=== PATIENT | female | born 1960 | race Caucasian/White ===

== ENCOUNTER 2019-08-27 21:34 | Emergency (ER) | payer OTHER ==
[2019-08-27 21:42] VITALS: TEMP 98.8; BMI 26.6
--- NOTE | 2019-08-27 21:49 | PDOC ---
History of Present Illness - General Chief Complaint: Headache Stated Complaint: HEADACHE, HIGH BLOOD PRESSURE Time Seen by Provider: 08/27/19 21:48 - History of Present Illness Initial Comments: 08/27/19 23:42 59 y/o F no significant medical hx, presents to the ED with 3 days of headache. She was at a pharmacy today andwas told her blood pressure was elevated. She remembneres it as being high to the 150's systolic. She was given aspirin (81mg PO) and was sent to the ED,. She describes the pain as 5/10 tingling pain in the back of head and neck. The pain was somewhat alleviated after taking aspirin. She denies any exacerbating factors. She denies vision changes, previous hx of stroke, htn, fevers, chills, syncope, LOC, head trauma. Past History - Past Medical History Allergies/Adverse Reactions: Allergies Allergy/AdvReac Type Severity Reaction Status Date / Time No Known Allergies Allergy Verified 08/27/19 21:42 COPD: No - Psycho Social/Smoking Cessation Hx Smoking History: Never smoked Review of Systems - Review of Systems Constitutional: No: Chills, Fever HEENTM: No: Eye Pain, Blurred Vision Respiratory: No: Cough, Shortness of Breath Cardiac (ROS): No: Chest Pain, Palpitations ABD/GI: No: Nausea, Vomiting : No: Burning, Dysuria Musculoskeletal: Yes: Neck Pain. No: Gout Integumentary: No: Bruising, Change in Color Neurological: Yes: Headache, Numbness, Tingling Endocrine: No: Excessive Sweating, Flushing *Physical Exam - Vital Signs Last Vital Signs Temp Pulse Resp BP Pulse Ox 98.8 F 96 H 19 147/68 97 08/27/19 21:38 08/27/19 21:38 08/27/19 21:38 08/27/19 21:38 08/27/19 21:38 - Physical Exam 08/27/19 23:30 GENERAL: Awake, alert, and fully oriented, in no acute distress HEAD: No signs of trauma, normocephalic, atraumatic EYES: PERRLA, EOMI, sclera anicteric, conjunctiva clear ENT: Auricles normal inspection, hearing grossly normal, nares patent, oropharynx clear without exudates. Moist mucosa NECK: Normal ROM, spinal and paraspinal tenderness to palpation LUNGS: No distress, speaks full sentences, clear to auscultation bilaterally HEART: Regular rate and rhythm, normal S1 and S2, no murmurs, rubs or gallops, peripheral pulses normal and equal bilaterally. ABDOMEN: Soft, nontender, normoactive bowel sounds. No guarding, no rebound. No masses EXTREMITIES : Normal inspection, Normal range of motion, no edema. No clubbing or cyanosis NEUROLOGICAL: Cranial nerves II through XII grossly intact. Normal speech, normal gait, no focal sensorimotor deficits SKIN: Warm, Dry, normal turgor, no rashes or lesions noted 08/27/19 23:47 ED Treatment Course - LABORATORY CBC & Chemistry Diagram: 08/27/19 23:00 08/27/19 23:00 Medical Decision Making - Medical Decision Making 08/27/19 23:31 59 y/o F no significant medical hx, presents to the ED with 3 days of headache. Meds: Tylenol Imaging: Head CT, C-spine ekg:normal sinus rhythm,possible left atrial enlargemen incomplete right bundle branch 08/27/19 23:48 pt reassessed pain is improved. 08/28/19 02:28 Ct head and c-spine w/o contrast. No acute intracranial abnormality. No hemorrhage. No visible infarct or mass. Osseous structures are intact. CT cervical spine: The neck is held in flexion. The cervical vertebrae are normally aligned. No fracture or destructive bone lesion. Small C4-5 disc/osteophyte complex. Slight disc bulge at C5-6. Please note that CT is relatively insensitive for evaluation of degenerative disc, ligamentous, canal and cord disease. If this is suspected then MRI should be obtained. 08/28/19 02:29 Discharge - Discharge Information Problems reviewed: Yes Clinical Impression/Diagnosis: Headache Qualifiers: Headache type: unspecified Headache chronicity pattern: acute headache Intractability: not intractable Qualified Code(s): R51 - Headache Condition: Improved Disposition: HOME - Admission No - Follow up/Referral - Patient Discharge Instructions Patient Printed Discharge Instructions: DI for Headache, DI for High Blood Pressure Additional Instructions: You were seen in the ER for high blood pressure and headache You should follow up with your primary care provider in the next 2-3 days RETURN TO THE ER if your headache returns and pain is not relieved with tylenol or ibuprofen you develop, fevers, chills, neck stiffness. worsening of any of today's symptoms. - Post Discharge Activity
[2019-08-27] MEDS ORDERED: ACETAMINOPHEN 500 MG TABLET (FP) PO ONE (22:25)
[2019-08-27] MEDS ORDERED: ACETAMINOPHEN 1000 MG/100 ML VIAL (NON FORMULARY) IVPB ONE (22:33)
[2019-08-27] MEDS ORDERED: ACETAMINOPHEN INJECTION 100 ML IVPB ONE (23:13)
[2019-08-27 23:23] LABS: BASO % 0.8 % (0-2.0); EOS % 0.4 % (0-4.5); HEMATOCRIT 37.6 % (32.4-45.2); HEMOGLOBIN 12.5 GM/dL (10.7-15.3); LYMPH % 35.8 % (8-40); MCH 30.1 pg (25.7-33.7); MCHC 33.3 g/dl (32.0-36.0); MEAN CELL VOLUME 90.4 fl (80-96); MEAN PLT VOLUME 8.7 fl (7.5-11.1); MONO % 6.3 % (3.8-10.2); NEUT % 56.7 % (42.8-82.8); PLATELET COUNT 240 K/MM3 (134-434); RBC 4.16 M/mm3 (3.60-5.2); WHITE BLOOD COUNT 7.4 K/mm3 (4.0-10.0)
--- NOTE | 2019-08-27 23:51 | PDOC ---
Documentation entered by Tania Hollingsworth SCRIBE, acting as scribe for Yu Salgado MD. Yu Salgado MD: This documentation has been prepared by the layibshira, Tania Hollingsworth SCRIBE, under my direction and personally reviewed by me in its entirety. I confirm that the documentation accurately reflects all work, treatment, procedures, and medical decision making performed by me. Attending Attestation - Resident Resident Name: KarenYesica - ED Attending Attestation I have performed the following: I have examined & evaluated the patient, The case was reviewed & discussed with the resident, I agree w/resident's findings & plan, Exceptions are as noted - HPI HPI: 08/27/19 23:51 The patient is a 59-year-old female with no reported past medical history who presents to the emergency department with a headache and elevated blood pressure. The patient reports shes been having three days of ongoing posterior headache, that presented gradually. The patient reports the pain was 5-6/10 in severity. The patient reports following up at the pharmacy for the headache, where the patients blood pressure was noted to be elevated. The patient reports she took Ecotrin, with headache improvement. Denies nausea or vomiting. Denies recent falls or trauma. Denies vision changes. - Physicial Exam PE: 08/27/19 23:37 Patient examined after receiving Tylenol IV GENERAL: The patient is in no acute distress. ENT: Ears normal, nares patent, oropharynx clear without exudates. Moist mucous membranes. NECK: Normal range of motion, supple, no midline or paraspinal tenderness LUNGS: Breath sounds equal, clear to auscultation bilaterally. No wheezes, and no crackles. HEART:Regular rate and rhythm, normal S1 and S2 without murmur, rub or gallop. ABDOMEN: Soft, nontender, normoactive bowel sounds. EXTREMITIES: Normal range of motion, no edema. NEUROLOGICAL: Cranial nerves II through XII grossly intact. Normal speech. No focal neurological deficits. SKIN: Warm, Dry, normal turgor, no rashes or lesions noted. - Medical Decision Making 08/27/19 23:38 59-year-old female no significant past medical history presenting to the emergency department with a complaint of occipital headache. Patient reports a gradual onset of this occipital headache starting 3 days ago. Patient has taken no medication for her symptoms. She ultimately went to the pharmacy today where her blood pressure was taken and patient was told she was hypertensive and told to come to the emergency department She denies dizziness, visual changes She denies focal weakness or numbness. She denies head trauma Patient was given Tylenol IV Currently her headache has completely resolved 08/27/19 23:49 Laboratory Tests 08/27/19 23:00 WBC 7.4 Hgb 12.5 Hct 37.6 Plt Count 240 D We will still do CT We will plan to discharge home Follow-up with primary care physician Return to the ER for any other concerns or complaint
[2019-08-28] LABS: BILIRUBIN,TOTAL 0.5 mg/dL (0.2-1); BLOOD UREA NITROGEN 14.6 mg/dL (7-18); CALCIUM 9.5 mg/dL (8.5-10.1); CREATININE 0.7 mg/dL (0.55-1.3); POTASSIUM 4.3 mmol/L (3.5-5.1); TOT PROT 8.2 g/dl (6.4-8.2)
[2019-08-28 03:08] VITALS: BP 127/75; PULSE 89
--- NOTE | 2019-08-28 12:27 | EKG ---
Test Reason : Blood Pressure : / mmHG Vent. Rate : 099 BPM Atrial Rate : 099 BPM P-R Int : 154 ms QRS Dur : 094 ms QT Int : 366 ms P-R-T Axes : 055 -14 024 degrees QTc Int : 469 ms NORMAL SINUS RHYTHM POSSIBLE LEFT ATRIAL ENLARGEMENT INCOMPLETE RIGHT BUNDLE BRANCH BLOCK NO PREVIOUS ECGS AVAILABLE Confirmed by ANALY PERRY MD ([id number]) on 08/28/2019 12:27:24 PM Referred By: Confirmed By:ANALY PERRY MD
== END 2019-08-28 03:05 | disposition home or self-care (01) ==
LOC: JER 21:34 → SUPCPDRO 21:34 → JER 08-28 03:05
PROC: 3E033NZ Introduction of Analgesics, Hypnotics, Sedatives into Peripheral Vein, Percutaneous Approach (ICD-10-PCS; principal; 2019-08-27)
DX: R51 Headache (principal); R03.0 Elevated blood-pressure reading, without diagnosis of hypertension
CPT/HCPCS: 36415; 70450-TC; 72125-TC; 80053; 85025; 93005; 93010; 96374; 99283-25; J0131